=== PATIENT | female | born 1995 | race Caucasian/White ===

== ENCOUNTER → 2020-03-30 16:58 | Outpatient (ROUT) | payer OTHER, SELFPAY | PROVIDERS: Visit Provider Family Medicine | DX: Z34.90 Encounter for supervision of normal pregnancy, unspecified, unspecified trimester (principal) | CPT/HCPCS: 87081; 87147 ==

== ENCOUNTER → 2020-05-03 11:12 | Outpatient (CLI) | payer OTHER, SELFPAY ==
[2020-05-04 02:49] LABS: COVID19 Sendout Not Detected (Not Detect)
== END ==
PROVIDERS: Visit Provider Physician Assistant
DX: Z01.812 Encounter for preprocedural laboratory examination (principal)
CPT/HCPCS: 87635

== ENCOUNTER 2020-05-05 20:06 | Inpatient (IN) | payer OTHER, SELFPAY ==
[2020-05-05 21:33] LABS: Add Manual Diff / Slide Review NO; Basophils Absolute Auto 100 /uL (0-100); Basophils Percent Auto 0.5 % (0-2); Eosinophils Absolute Auto 100 /uL (0-450); Eosinophils Percent Auto 0.6 % (2-4); Hematocrit 34.8 % (36-46); Hemoglobin 12.1 g/dL (12.0-16.0); Lymphocytes Absolute Auto 2100 /uL (1100-4500); Lymphocytes Percent Auto 19.1 % (25-40); Mean Corpuscular HGB Conc 34.9 % (30-36); Mean Corpuscular Volume 91.9 fL (80-100); Monocytes Absolute Auto 900 /uL (0-900); Monocytes Percent Auto 8.5 % (3-14); Neutrophils Absolute Auto 7900 /uL (1500-7000); Neutrophils Percent Auto 71.3 % (50-75); Platelet Count 258 X10^3/uL (150-400); Red Blood Cell Count 3.79 X10^6/uL (4.0-5.2); Red Cell Distribution Width 14.6 % (11.6-14.8)
[2020-05-05] MEDS: miSOPROStoL 25 MCG TABLET VAG (21:42)
[2020-05-05 21:52] VITALS: BP 133/75
[2020-05-05] MEDS: ZOLPIDEM 5 MG TABLET PO (23:41)
[2020-05-06 07:15] VITALS: BP 133/77; PULSE 92; RESP 18; TEMP 36.7
[2020-05-06] MEDS: PENICILLIN G POTASSIUM 5,000,000 UNIT in DEXTROSE 5% IN WATER 250 ML IV (08:31)
[2020-05-06] MEDS: OXYTOCIN PREMIX 30 UNIT/500 ML PLAST..BAG IV (08:36)
--- NOTE | 2020-05-06 09:00 | PM.OBHP.1 ---
OB HPI Date/Time Date of admission: 05/06/20 Date Patient Seen: 05/06/20 Time Patient Seen: 09:00 History of Present Condition Chief complaint: : 1 Para: 0 Estimated Date of Delivery: 04/25/20 Estimated Gestational Age (weeks): Thirty Narrative: Veronica Khoury is a 24 year old female with no medical problems. Who had an uncomplicated . [place] during the 2nd trimester. Should good dates period and previous good care. No issues or complications. Indications Indication for induction OB: post dates History of Present care: good care Dating criteria: LMP confirmed by 1st trimester US Ultrasounds: normal mid trimester US Obstetrical complications: none Medical complications: none Preadmission Labs Blood type: 0 (-) negative -: Antibody screen: negative, Cystic fibrosis screen: unknown, GBS status: positive, HBsAG: negative, HIV: negative, HSV 1: negative, HSV 2: negative and RPR/VDLR: negative -: Chlamydia screen: not detected and Gonorrhea screen: not detected -: Rubella: immune and Varicella: immune HCT: 32.8 HCAB: negative PAP: Normal Cell-free DNA: Negative 1 hr GTT: 113 Prior (ies) History: No issues or problems Evaluation Evaluation Laboratory results: Laboratory Tests 05/05/20 05/05/20 21:00 21:00 WBC 11.0 RBC 3.79 L Hgb 12.1 Hct 34.8 L MCV 91.9 MCH 32.0 MCHC 34.9 RDW 14.6 Plt Count 258 Neut % (Auto) 71.3 Lymph % (Auto) 19.1 L [place] % (Auto) 8.5 Eos % (Auto) 0.6 L Baso % (Auto) 0.5 Neut # (Auto) 7900 H Lymph # (Auto) 2100 [place] # (Auto) 900 Eos # (Auto) 100 Baso # (Auto) 100 Blood Type O Negative Antibody Screen Negative PFSH Social History Smoking Status: Never smoker Meds Home Medications and Allergies Home Medications Medication Instructions Recorded Confirmed Type No Known Home Medications 05/05/20 05/05/20 History Allergies Allergy/AdvReac Type Severity Reaction Status Date / Time No Known Drug Allergies Allergy Verified 05/05/20 21:55 Review of Systems Review of Systems ROS: Yes All systems reviewed with the patient and are negative except as otherwise documented Exam Narrative Exam Narrative: Alert smiling female in no acute distress. Lungs are clear. Heart regular rate and rhythm. Abdomen is soft positive bowel sounds nontender gravid. Vertex. Sterile vaginal exam 2-3 cm 0 to +1 80% vertex AROM with clear fluid extremities normal. Neurologic exam normal reflexes Objective Labs Result Diagrams: 05/05/20 21:00 Labs: Laboratory Results - last 24 hr 05/05/20 05/05/20 21:00 21:00 WBC 11.0 RBC 3.79 L Hgb 12.1 Hct 34.8 L MCV 91.9 MCH 32.0 MCHC 34.9 RDW 14.6 Plt Count 258 Neut % (Auto) 71.3 Lymph % (Auto) 19.1 L [place] % (Auto) 8.5 Eos % (Auto) 0.6 L Baso % (Auto) 0.5 Neut # (Auto) 7900 H Lymph # (Auto) 2100 [place] # (Auto) 900 Eos # (Auto) 100 Baso # (Auto) 100 Blood Type O Negative Antibody Screen Negative Assessment and Plan Assessment and Plan Assessment and Plan narrative: 24-year-old here for postdate induction. Cytotec last night. Antibiotics started today. For GBS positive. Will need RhoGAM. May rum this morning and Pitocin started this morning. Will proceed to delivery. heart monitor was category 1
[2020-05-06] MEDS: LACTATED RINGERS 1,000 ML 100 ML IV (12:53)
[2020-05-06] MEDS: miSOPROStoL 200 MCG TABLET 600 MCG PR (13:35)
--- NOTE | 2020-05-06 13:51 | P.PCNOB_ITS ---
Labor & Delivery Delivery date: 05/06/20 Intrapartal events: None Cervical ripening method: per misoprostal protocol Induction method: AROM Delivery augmentation: pitocin Delivery monitor: external FHT Route of delivery: L&D Laceration Description: Periurethral - 1st Degree, Periurethral - 2nd Degree and Vaginal - 2nd Degree Delivery repair: vicryl Estimated blood loss (mL): 350 Anesthesia type: None Complications: None Narrative: Patient was admitted last night for Cytotec and cervical ripening. She has 41 and 3 7th last night 41 and 4 7th today. Cytotec x3 was given. Patient had moderate cervical change. This morning she was 2-3 cm 80% 0+ 1 and a room was undertaken approximately 845. Clear fluid. Pitocin was already began but minimal affect and rupture seem to be much more effective. Within half an hour she was janna pretty aggressively heart monitor last night had some mild very abilities which were considered to be just variables. heart monitor otherwise was very reactive. Through the course of for second- stage was otherwise category 1 period with no significant concerning abnormality. She progressed actually quite rapidly and was complete by approximately 12 which was 3-1/2 hours after rupture. We began second-stage at that time. And Afrin hour of active pushing baby was delivered with no shoulder or other abnormality. Child was bulb suctioned on the perineum and then risk to the baby was delivered up onto the mom's abdomen and chest. No resuscitation was required. Child was aggressively crying at that point. Delayed cord clamping was done per family's wish. Cord was then clamped and cut by dad. Cord bloods were obtained. Placenta delivered spontaneously shortly after that. Three vessels intact. Cervix was well into the pelvis on and moderate bleeding. Aggressive was sought edge was done. With good results. Perineum and mucosa with and evaluated she had bilateral periurethral first- degree tears. On the right side just below the Errol through was a second-degree tear about 1 cm long period was actively bleeding. She had first-degree tears around the perineum and on the left side she had a second-degree vaginal wall tear on this area the hymenal ring. The site bleeding along the 1st or second- degree tear leading from that to the labial edge and 1% lidocaine was used to and this to size and the peer urethral tear was then repaired with running 3 0 Vicryl. The right lateral hymenal ring vaginal tear was then repaired with 2 interrupted 4-0 Vicryl sutures. Did run a small area just lateral on the left which was had some slight bleeding with 4-0 Vicryl. Bleeding was re-evaluated she had a small amount of persistent bleeding from her uterus and 600 mcg of misoprostol was given p.o.. Pitocin was also previously been run at 250 an hour. No other changes. Seemed to have excellent results. EBL was 350 cc. Mother and infant were in stable condition. Plan for aftercare: Mom will be transferred after recovery to usual care.
[2020-05-06] MEDS: IBUPROFEN 600 MG TABLET PO (15:15)
[2020-05-07 07:20] LABS: Hematocrit 30.4 % (36-46); Hemoglobin 10.4 g/dL (12.0-16.0)
[2020-05-07] MEDS: DOCUSATE 100 MG CAPSULE PO (08:56)
[2020-05-07] MEDS: PRENATAL VIT,CALC/IRON/FOLIC 1 TABLET 1 TAB PO (08:56)
--- NOTE | 2020-05-07 09:00 | PM.OBDS.1 ---
Discharge Providers Provider Date of admission: 05/05/20 20:06 Discharge Date: 05/07/20 Consults: 05/07/20 13:47 Consult to Quenching Car Operator Routine Comment: Discharge provider: Dunia Maldonado MD Summary Hospital Course Date Patient Seen: 05/07/20 Time Patient Seen: 09:00 Procedures: Normal spontaneous vaginal delivery without epidural or analgesics medicine. Hospital Course: Admitted to the hospital for cervical ripening and Pitocin induction. Had normal spontaneous vaginal delivery without complications. GBS positive and received 1 dose of IV antibiotics. O negative and baby cord blood was A positive. RhoGAM given prior to discharge. No complications. [place] discharged home in stable condition on day 1. Peripartum Data Delivery Method: Natural Vaginal Laceration description: Periurethral - 1st Degree complications: none Status at Discharge Cognitive/behavioral status at discharge: oriented Functional status at discharge: independent ambulation Overall status at discharge: patient is progressing back to baseline Time Spent with Patient Time attestation: Total time spent providing and/or coordinating discharge services:30 min Objective Labs Result Diagrams: 05/07/20 06:36 Labs: Laboratory Results - last 24 hr 05/06/20 05/07/20 18:10 06:36 Hgb 10.4 L Hct 30.4 L Maternal Bleed Negative Exam Narrative Exam Narrative: Afebrile vital signs are stable Chest: Clear to auscultation Cor: Regular rate and rhythm without murmur Abdomen: Uterus is firm and nontender and well below the umbilicus Extremities trace edema Discharge Plan Discharge Plan Patient Disposition: Home Discharge orders & Medications Prescriptions: No Action No Known Home Medications RF: 0
[2020-05-07] MEDS: RHO(D) IMMUNE GLOBULIN 1,500 UNIT SYRINGE 1500 UNIT IM (10:50)
== END 2020-05-07 13:03 | disposition home or self-care (01) | DRG 807 ==
PROVIDERS: Admitting Provider Family Medicine; Referring Provider Family Medicine; Visit Provider Family Medicine
DX: O48.0 Post-term pregnancy (principal); Z37.0 Single live birth; Z3A.41 41 weeks gestation of pregnancy; O99.824 Streptococcus B carrier state complicating childbirth; O71.82 Other specified trauma to perineum and vulva; O70.1 Second degree perineal laceration during delivery
CPT/HCPCS: 36415; 59050; 85014; 85018; 85025; 85461; 86850; 86900; 86901; G0379; J2540; J2590; J2790; S0191

== ENCOUNTER → 2021-11-01 09:06 | Outpatient (CLI) | payer OTHER, MEDICAID, SELFPAY ==
--- NOTE | 2021-11-01 | DI.US.S_ITS ---
PROCEDURE: US OB <= 14 WEEKS FETUS INDICATIONS: state, incidental OUTSIDE/PRIOR DATING DATA: Last menstrual period (LMP): 08/02/2021. LMP-based estimated date of delivery (SHAN): 05/09/2022. First dating scan (date and location): 11/01/2021. Estimated date of delivery (SHAN) from first dating scan: 05/08/2022. The calculations are made using the ultrasound generated SHAN of 05/08/2022. TECHNIQUE: Real-time scanning was performed of the fetus and maternal pelvic organs, with image documentation. Endovaginal scanning was also performed to better visualize the fetus and maternal ovaries. COMPARISON: None. FINDINGS: Embryo: [place]-rump length is 6.8 cm corresponding to gestational age of 13 weeks 1 day. Heart rate: 163 beats per minute Maternal organs: Right ovary not well seen. Left ovary normal with a corpus luteum cyst noted. IMPRESSION: Single live intrauterine gestation with estimated ultrasound age of 13 weeks 1 day and SHAN 05/08/2022. Dictated by: Papa Ramos M.D. on 11/01/2021 at 10:02 Approved by: Papa Ramos M.D. on 11/01/2021 at 10:08
== END ==
PROVIDERS: PCP Family Medicine; Referring Provider Obstetrics & Gynecology; Visit Provider Obstetrics & Gynecology
DX: Z36.87 Encounter for antenatal screening for uncertain dates (principal); O34.81 Maternal care for other abnormalities of pelvic organs, first trimester; N83.12 Corpus luteum cyst of left ovary; Z3A.13 13 weeks gestation of pregnancy
CPT/HCPCS: 76801; 76817

== ENCOUNTER → 2021-11-10 12:29 | Outpatient (CLI) | payer OTHER, MEDICAID, SELFPAY ==
[2021-11-10 13:14] LABS: Add Manual Diff / Slide Review NO; Basophils Absolute Auto 0 /uL (0-100); Basophils Percent Auto 0.3 % (0-2); Eosinophils Absolute Auto 200 /uL (0-450); Eosinophils Percent Auto 1.7 % (2-4); Hematocrit 37.4 % (36-46); Hemoglobin 12.6 g/dL (12.0-16.0); Lymphocytes Absolute Auto 1600 /uL (1100-4500); Lymphocytes Percent Auto 14.2 % (25-40); Mean Corpuscular HGB Conc 33.8 % (30-36); Mean Corpuscular Hemoglobin 29.3 PG (26-34); Mean Corpuscular Volume 86.8 fL (80-100); Monocytes Absolute Auto 700 /uL (0-900); Neutrophils Absolute Auto 8600 /uL (1500-7000); Neutrophils Percent Auto 77.8 % (50-75); Platelet Count 250 X10^3/uL (150-400); Red Blood Cell Count 4.31 X10^6/uL (4.0-5.2); Red Cell Distribution Width 15.1 % (11.6-14.8)
[2021-11-10 13:50] LABS: Appearance Urine UA CLEAR; Bilirubin Urine UA NEGATIVE (NEGATIVE); Color Urine UA YELLOW; Glucose Urine UA NEGATIVE (Negative); Ketones Urine UA NEGATIVE (NEGATIVE); Leukocyte Esterase Urine UA NEGATIVE (NEGATIVE); Nitrite Urine UA NEGATIVE (Negative); Occult Blood Urine UA NEGATIVE (Negative); Protein Urine UA NEGATIVE (Negative); Specific Gravity Urine UA <=1.005 (1.000-1.035); Urobilinogen Urine UA 0.2 E.U./dL (0.2)
[2021-11-10 13:53] LABS: pH Urine UA 6.5 (4.5-8.0)
[2021-11-11 06:10] LABS: Varicella IgG Antibody 785 index (Immune >165)
[2021-11-11 08:17] LABS: RPR Screen Non Reactive (Non Reactive)
[2021-11-11 17:53] LABS: Hepatitis B Surface Antigen NEGATIVE s/c (NEGATIVE); Rubella Antibody IgG 11.4 IU/mL (>15)
[2021-11-11 18:09] LABS: HIV 1 & 2 Ab/Ag 4th Gen Combo NEGATIVE (NEGATIVE); Hep C Virus Ab w/Reflex Quant NEGATIVE s/c (NEGATIVE)
== END ==
PROVIDERS: PCP Family Medicine; Referring Provider Obstetrics & Gynecology; Visit Provider Obstetrics & Gynecology
DX: Z34.81 Encounter for supervision of other normal pregnancy, first trimester (principal)
CPT/HCPCS: 36415; 80055; 81003; 86787; 86803; 86850; 86900; 86901; 87086; 87389

== ENCOUNTER → 2021-11-18 15:43 | Outpatient (CLI) | payer OTHER, MEDICAID, SELFPAY ==
[2021-11-18 20:19] LABS: Urine N gonorrhoeae NOT DETECTED
[2021-11-18 20:45] LABS: Urine Chlamydia NOT DETECTED
== END ==
PROVIDERS: PCP Family Medicine; Visit Provider Obstetrics & Gynecology
DX: Z34.82 Encounter for supervision of other normal pregnancy, second trimester (principal); Z3A.15 15 weeks gestation of pregnancy
CPT/HCPCS: 87491; 87591

== ENCOUNTER → 2022-01-03 12:08 | Outpatient (CLI) | payer OTHER, MEDICAID, SELFPAY ==
--- NOTE | 2022-01-03 12:09 | DI.US.S_ITS ---
PROCEDURE: US OB >= 14 WEEKS FETUS INDICATIONS: ANATOMY OUTSIDE/PRIOR DATING DATA: Last menstrual period (LMP): 08/02/2021. LMP-based estimated date of delivery (SHAN): 05/09/2022. First dating scan (date and location): 11/01/2021. Estimated date of delivery (SHAN) from first dating scan: 05/08/2022. TECHNIQUE: Real-time scanning was performed of the fetus, with image documentation and biometric measurements. Endovaginal scanning: None COMPARISON: [facility], , OB >= 14 WEEKS FETUS, 12/16/2021, 13:59. FINDINGS: General: A single living intrauterine gestation is present. Presentation: Vertex. Placenta: Placental position is posterior , without previa. Amniotic fluid index: 16.1 cm, normal range is 5-24 cm. heart rate: 157 beats per minute. Maternal cervical canal: 3.2 cm long. Normal lower limit is 2.5 cm. biometrics: Biparietal diameter: 5.4 cm, 22 week 2 day Head circumference: 20.5 cm, 22 week 4 day Abdominal circumference: 17.5 cm, 22 week 3 day Femur length: 4.1 cm, 23 week 3 day Clinically estimated gestational age: 22 week 1 day Composite gestational age from present scan: 22 week 5 day Estimated weight and percentile: 538 g, 78th percentile Anatomic survey: Neuro: Ventricles are non-dilated at less than 10 mm. Cisterna magna is normal at 3-11 mm. Cerebellum is normal in size and morphology. Nuchal skin fold: Normal at less than 6 mm between 14-21 weeks gestational age. Face: Nose and lips, facial profile are normal. Spine: No evidence for spina bifida. Heart: 4-chambered heart is present, with normal ventricular outflow tracts. Diaphragm: Diaphragm is intact. Stomach: Left-sided stomach is present. Kidneys: No hydronephrosis. Normal is less than 5 mm in 2nd trimester, less than 7 mm in 3rd trimester. Cord: 3-vessel cord has orthotopic insertion. Bladder: Normal in size. Extremities: All 4 extremities identified. IMPRESSION: Single live intrauterine corresponds with a 22 week 5 day gestation by current ultrasound Approved by: Ike Bennett M.D. on 01/03/2022 at 13:43
== END ==
PROVIDERS: PCP Family Medicine; Referring Provider Obstetrics & Gynecology; Visit Provider Obstetrics & Gynecology
DX: Z34.82 Encounter for supervision of other normal pregnancy, second trimester (principal); Z3A.22 22 weeks gestation of pregnancy
CPT/HCPCS: 76811

== ENCOUNTER → 2022-02-02 14:18 | Outpatient (CLI) | payer OTHER, MEDICAID, SELFPAY ==
[2022-02-02 15:46] LABS: Hematocrit 32.5 % (36-46); Hemoglobin 11.1 g/dL (12.0-16.0)
[2022-02-02 16:22] LABS: GTT (PREG) 1 Hour PP 50gm Dose 119 mg/dL (76-139)
== END ==
PROVIDERS: PCP Family Medicine; Referring Provider Obstetrics & Gynecology; Visit Provider Obstetrics & Gynecology
DX: O26.899 Other specified pregnancy related conditions, unspecified trimester; Z3A.26 26 weeks gestation of pregnancy; Z67.91 Unspecified blood type, Rh negative
CPT/HCPCS: 36415; 82950; 85014; 85018; 86850

== ENCOUNTER → 2022-04-20 09:10 | Outpatient (CLI) | payer OTHER, MEDICAID, SELFPAY ==
[2022-04-21 07:28] LABS: Strep Grp B PCR POS for Grp B Strep
== END ==
PROVIDERS: PCP Family Medicine; Visit Provider Obstetrics & Gynecology
DX: Z34.83 Encounter for supervision of other normal pregnancy, third trimester (principal); Z3A.37 37 weeks gestation of pregnancy
CPT/HCPCS: 87653

== ENCOUNTER 2022-04-26 17:04 | Outpatient (CLI) | payer OTHER, MEDICAID, SELFPAY ==
--- NOTE | 2022-04-26 18:01 | PM.OBTRLD ---
Visit Information Visit Information Date of evaluation: 04/26/22 Primary OB Provider: Kinza Camacho Reason for Evaluation: Yes rupture of membranes [facility] Medical History (Updated 03/09/22 @ 15:14 by David Tian MD) Chicken pox (~1999) Surgical History (Updated 11/17/21 @ 14:21 by Jocelyn Woods RN) [place] teeth extracted (~2012) Family History (Updated 11/23/21 @ 22:55 by Yoanna Cochran) Mother Hypertension Father Hypertension Grandmother No problems noted. Grandfather Skin cancer Grandmother Cancer Grandfather Family history unknown Brother Hypertension Social History marital status: number of children: 1 household members: spouse and children lives independently: Yes caregiver/support person: No housing: house pets and animals: No education level: college (2 yrs. ) occupational status: unemployed ([facility] [employer]) current occupational exposures/hazards: No special chris needs: No seatbelt use: always do you feel safe at home: Yes Smoking Status: Never smoker second hand exposure: No alcohol intake: never substance use type: does not use during the past year weight has: remained stable well-balanced diet: about half the time (low appetite, feeling full, not really hungry. ) daily servings fruits/ve-4 caffeine: Yes (1 cup 1-2 x week. ) Type(s) of exercise: normal ROM and activity (busy mom to toddler.) frequency: does not exercise Evaluation Evaluation Baseline heart rate: 135 Variability: Moderate (11-25) monitor accelerations: Present Monitor Decelerations: Absent Contraction Frequency (minutes): 10 Uterine Contraction Intensity: Mild Non-invasive Membranes Rupture Test: negative Diagnosis, Plan/Disposition Plan/Disposition Plan: Assessment: 38 1/7 weeks gestation No ROM Plan: D/C to home S/S labor reviewed OB Disposition: home
== END 2022-04-26 18:30 | disposition home or self-care (01) ==
LOC: OB 04-27 10:34
PROVIDERS: PCP Family Medicine; Referring Provider Obstetrics & Gynecology; Visit Provider Obstetrics & Gynecology
DX: Z03.71 Encounter for suspected problem with amniotic cavity and membrane ruled out (principal); Z3A.38 38 weeks gestation of pregnancy
CPT/HCPCS: 59025; 84112; G0378; G0379

== ENCOUNTER 2022-05-09 07:01 | Inpatient (IN) | payer OTHER, MEDICAID, SELFPAY ==
[2022-05-09 08:01] VITALS: BP 132/81
[2022-05-09 08:06] LABS: Add Manual Diff / Slide Review NO; Basophils Absolute Auto 0 /uL (0-100); Basophils Percent Auto 0.5 % (0-2); Eosinophils Absolute Auto 200 /uL (0-450); Eosinophils Percent Auto 2.2 % (2-4); Hematocrit 34.7 % (36-46); Lymphocytes Absolute Auto 1500 /uL (1100-4500); Lymphocytes Percent Auto 17.8 % (25-40); Mean Corpuscular HGB Conc 34.5 % (30-36); Mean Corpuscular Hemoglobin 31.4 PG (26-34); Mean Corpuscular Volume 90.9 fL (80-100); Monocytes Absolute Auto 600 /uL (0-900); Neutrophils Absolute Auto 5900 /uL (1500-7000); Neutrophils Percent Auto 72.5 % (50-75); Platelet Count 231 X10^3/uL (150-400); Red Blood Cell Count 3.82 X10^6/uL (4.0-5.2); Red Cell Distribution Width 14.1 % (11.6-14.8); White Blood Cell Count 8.2 X10^3/uL (4.5-11.0)
[2022-05-09] MEDS: OXYTOCIN PREMIX 30 UNIT/500 ML PLAST..BAG IV (08:13)
[2022-05-09] MEDS: PENICILLIN G POTASSIUM 5,000,000 UNIT in DEXTROSE 5% IN WATER 250 ML 250 UNIT IV (08:13)
[2022-05-09] MEDS: LACTATED RINGERS 1,000 ML 100 ML IV (08:14)
[2022-05-09 08:27] LABS: COVID19 -Nasal RAPID Negative (Negative)
[2022-05-09] MEDS: PENICILLIN G POTASSIUM 3,000,000 UNIT/50 ML FROZ.PIGGY 100 UNIT IV (13:13)
--- NOTE | 2022-05-09 20:48 | P.HPOB_ITS ---
OB HPI Date/Time Date of admission: 05/09/22 Date Patient Seen: 05/09/22 Time Patient Seen: 07:30 History of Present Condition Chief complaint: maternity SHAN Calculator Estimated Delivery Date Method Current WG Current Estimate 05/09/22 LMP (Uncertain) 40w 0d Other Estimates 05/08/22 Ultrasound #1 40w 1d Estimated Gestational Age (weeks): 40 : 2 Para: 1 care: good care, initiated at week # (11), number of visits (10) and pounds weight gain (26) Dating criteria OB: LMP confirmed by 1st trimester US Ultrasounds: normal 1st trimester US and normal mid trimester US Obstetrical complications: none Medical complications OB: none Preadmission Labs Last OB Lab Results: Blood Type O Negative 05/09/22 07:20 Antibody Screen Positive 05/09/22 07:20 Hematocrit 34.7 % (36-46) L 05/09/22 07:20 Hemoglobin 12.0 g/dL (12.0-16.0) 05/09/22 07:20 Hepatitis B Surface Antigen Negative s/c (NEGATIVE) 11/10/21 12 :33 Hepatitis C Antibody Negative s/c (NEGATIVE) 11/10/21 12:33 Rubella Antibody 11.4 IU/mL (>15) L 11/10/21 12:33 Varicella-Zoster IgG Antibody 785 index (Immune >165) 11/10/21 12:33 Glucose 1 Hour 119 mg/dL (76-139) 02/02/22 15:30 Group B Streptococcus (PCR) Pos for grp b strep H 04/20/22 09:1 0 -: Chlamydia screen: negative, Gonorrhea screen: negative and Urine: negative -: PAP smear: Normal External Labs -: Urine: negative Prior (ies) Past Pregnancies Del. Date GA/Weeks Labor Lgth Wt Sex Route Outcome Anesthesia Place Delv Breastfeed Preg Comp Name 05/06/20 42 4 8 lb 4 oz Female vaginal live - full term no ne IH 3 mos.; biting/suck issues. post-dates induction [place] Delivery Date: 05/06/20 Last Updated by: Kiah Tapia/ Dr. Bailey. Cytotec to Pitocin, 1 hr 2nd stage, no complications. Small tear c repair. Evaluation Evaluation Baseline heart rate: 135 Variability: Moderate (11-25) monitor accelerations: Present Monitor Decelerations: Absent Status: Category l Dilation (cm): 3 Effacement (%): 75 station: -1 Position of cervix: mid Consistency: medium [facility] Medical History (Updated 03/09/22 @ 15:14 by David Tian MD) Chicken pox (~1999) Surgical History (Updated 11/17/21 @ 14:21 by Jocelyn Woods RN) [place] teeth extracted (~2012) Family History (Updated 11/23/21 @ 22:55 by Yoanna Cochran) Mother Hypertension Father Hypertension Grandmother No problems noted. Grandfather Skin cancer Grandmother Cancer Grandfather Family history unknown Brother Hypertension Social History marital status: number of children: 1 household members: spouse and children lives independently: Yes caregiver/support person: No housing: house pets and animals: No education level: college (2 yrs. ) occupational status: unemployed ([employer]) current occupational exposures/hazards: No special chris needs: No seatbelt use: always do you feel safe at home: Yes Smoking Status: Never smoker second hand exposure: No alcohol intake: never substance use type: does not use during the past year weight has: remained stable well-balanced diet: about half the time (low appetite, feeling full, not really hungry. ) daily servings fruits/ve-4 caffeine: Yes (1 cup 1-2 x week. ) Type(s) of exercise: normal ROM and activity (busy mom to toddler.) frequency: does not exercise Meds Home Medications and Allergies Home Medications Medication Instructions Recorded Confirmed Type prenat.vits,caesar,uts-jumf-egmop 1 tab PO DAILY 11/17/21 05/09/22 History Allergies Allergy/AdvReac Type Severity Reaction Status Date / Time No Known Drug Allergies Allergy Verified 05/04/22 16:14 OB Exam Narrative Exam Narrative: Generally: Patient is sitting up in bed, no acute distress Lungs: Clear to auscultation bilaterally Cardiovascular: Regular rate and rhythm Fundal height: 39 cm Estimated weight: 8 lb Extremities: No edema Objective Labs Result Diagrams: 05/09/22 07:20 Labs: Laboratory Results - last 24 hr 05/09/22 05/09/2205/09/22 07:20 07:20 07:20 WBC 8.2 RBC 3.82 L Hgb 12.0 Hct 34.7 L MCV 90.9 MCH 31.4 MCHC 34.5 RDW 14.1 Plt Count 231 Neut % (Auto) 72.5 Lymph % (Auto) 17.8 L [place] % (Auto) 7.0 Eos % (Auto) 2.2 Baso % (Auto) 0.5 Neut # (Auto) 5900 Lymph # (Auto) 1500 [place] # (Auto) 600 Eos # (Auto) 200 Baso # (Auto) 0 SARS-CoV-2 (PCR) Negative Blood Type O Negative Antibody Screen Positive Antibody Identification Anti-D Assessment and Plan Assessment and Plan Assessment and Plan narrative: Assessment: 26-year-old 2 para 1 at 40 weeks gestation for induction of labor GBS positive Plan: Pitocin per protocol 2 After second dose of antibiotics plan AROM Expected management to spontaneous vaginal delivery Time Spent with Patient Total time spent with greater than 50% in coordination of care (as documented) at patient's floor/unit and/or counseling patient:: 15-24 minutes
--- NOTE | 2022-05-09 20:53 | PM.OBPNLAB ---
Date/Time Date Patient Seen: 05/09/22 Time Patient Seen: 13:30 Pain Control Pain control: tolerating well Pelvic Exam Dilation (cm): 3 Effacement (%): 75 station: -1 Amniotic membrane status: Intact Contractions Contractions on admission: none Pitocin rate (mU/min): 6 Contraction frequency (min): 3 Contraction duration (min): 1 Contraction intensity: Mild Status status: Category l Heart Rate Baseline: 135 Monitor Accelerations: Present Monitor Decelerations: Absent Monitor Variability: Moderate Assessment and Plan Assessment: induction ongoing Plan: other Comments: AROM with copious clear amniotic fluid
--- NOTE | 2022-05-09 20:54 | PM.OBPNLAB ---
Date/Time Date Patient Seen: 05/09/22 Time Patient Seen: 17:30 Pain Control Pain control: tolerating well Pelvic Exam Dilation (cm): 5 Effacement (%): 100 station: 0 Amniotic membrane status: Ruptured Contractions Contractions on admission: none Pitocin rate (mU/min): 10 Contraction frequency (min): 3 Contraction duration (min): 1 Contraction pattern: Regular Contraction intensity: Moderate Status status: Category l Heart Rate Baseline: 135 Monitor Accelerations: Present Monitor Decelerations: Absent Monitor Variability: Moderate Assessment and Plan Assessment: active labor Plan: continuous present management Comments: Expectant management to
--- NOTE | 2022-05-09 20:56 | PM.OBPRVD ---
Events: Labor Induction Labor & Delivery Delivery date: 05/09/22 Intrapartal Events: Precipitous Labor < 3 hours Cervical ripening method: none Induction method: per pitocin protocol Delivery augmentation: rupture of membranes Delivery monitor: external FHT and external uterine Route of delivery: Episiotomy description: None L&D Laceration Description: None Estimated blood loss (mL): 100 Anesthesia Type: None Complications: None Narrative: Patient complete and pushed once. At 5:45 p.m., a live male delivered spontaneously in the LEAH presentation with compound presentation with the left arm. No nuchal cord. The remainder of the body delivered without difficulty and was placed on mom's abdomen. The cord was double clamped and cut after it stopped pulsing. Pitocin was given in the IV fluids. Cord bloods were obtained. Placenta delivered intact with a three-vessel cord at 5:50 p.m.. Fundus was massaged to firm. No lacerations. Apgars 9 at 1 minute and 9 at 5 minutes. Weight 8 lb 8.3 oz. . Mom and stable to recovery. Baby 1: gender: Male Presentation: vertex Position: Right Occiput Anterior Placenta delivery description: Spontaneous Cord Vessel Description: 3 Vessels score (1 min): 9 score (5 min): 9 weight: 8 lb 8.3 oz Plan for aftercare: Routine care
[2022-05-10] MEDS: ACETAMINOPHEN 325 MG TABLET 650 MG PO ×2 (00:52→08:40)
[2022-05-10] MEDS: IBUPROFEN 600 MG TABLET PO ×2 (00:52→08:40)
[2022-05-10 05:52] LABS: Hematocrit 33.4 % (36-46); Hemoglobin 11.4 g/dL (12.0-16.0)
--- NOTE | 2022-05-10 08:00 | PM.OBDS.1 ---
Discharge Providers Provider Date of admission: 05/09/22 07:01 Discharge Date: 05/10/22 Primary care physician: Andrea Bailey MD Consults: 05/10/22 17:54 Consult to Supervisor [employer] Service Routine Comment: Discharge provider: Kinza Camacho MD Summary Hospital Course Date Patient Seen: 05/10/22 Time Patient Seen: 08:00 Diagnoses: Forty weeks gestation Induction of labor with Pitocin Artificial rupture of membranes Spontaneous vaginal delivery Hospital Course: Patient is a 26-year-old 2 para 2 who presented on May 09, 2022 for a scheduled induction of labor. She received Pitocin per protocol 2. Artificial rupture of membranes was performed with clear amniotic fluid. She was 3 cm dilated. She progressed to 5 cm at 5:30 p.m.. She had a precipitous delivery 10 minutes later. She delivered a live male infant without complication. No lacerations. Her course was unremarkable. She is discharged home on day # 1. Peripartum Data Delivery Method: Natural Vaginal Laceration Description: None Procedures: Pitocin induction of labor Artificial rupture of membranes Spontaneous vaginal delivery complications: none 1: Gender: Male Disposition of : home Status at Discharge Cognitive/behavioral status at discharge: oriented Functional status at discharge: independent ambulation Overall status at discharge: patient is progressing back to baseline Time Spent with Patient Time attestation: Total time spent providing and/or coordinating discharge services: Time spent: Less than 30 minutes Objective Labs Result Diagrams: 05/10/22 05:38 Labs: Laboratory Results - last 24 hr 05/09/22 05/09/22 05/09/22 07:20 07:20 07:20 WBC 8.2 RBC 3.82 L Hgb 12.0 Hct 34.7 L MCV 90.9 MCH 31.4 MCHC 34.5 RDW 14.1 Plt Count 231 Neut % (Auto) 72.5 Lymph % (Auto) 17.8 L [place] % (Auto) 7.0 Eos % (Auto) 2.2 Baso % (Auto) 0.5 Neut # (Auto) 5900 Lymph # (Auto) 1500 [place] # (Auto) 600 Eos # (Auto) 200 Baso # (Auto) 0 SARS-CoV-2 (PCR) Negative Blood Type O Negative Antibody Screen Positive Antibody Identification Anti-D 05/10/22 05:38 WBC RBC Hgb 11.4 L Hct 33.4 L MCV MCH MCHC RDW Plt Count Neut % (Auto) Lymph % (Auto) [place] % (Auto) Eos % (Auto) Baso % (Auto) Neut # (Auto) Lymph # (Auto) [place] # (Auto) Eos # (Auto) Baso # (Auto) SARS-CoV-2 (PCR) Blood Type Antibody Screen Antibody Identification Exam Narrative Exam Narrative: Generally: Patient is sitting up in bed, holding , no acute distress Fundus: Firm at U Extremities: No edema, negative Homans Discharge Plan Discharge Plan Patient Disposition: Home Provider Discharge Comment: Call with fever, chills, or bleeding vaginally more than a pad in an hour Ibuprofen 600 mg every 6 hours as needed Tylenol 650 mg every 6 hours as needed Discharge orders & Medications Prescriptions: Continued prenat.vits,caesar,obg-mwuj-gajxm Tablet 1 tab PO DAILY Follow up/Referrals: Kinza Camacho MD [Physician] - 6 Weeks Diet/Activity/Treatments Diet: Regular Activity: Nothing in the vagina for 6 weeks Skin/Wound/Dressing Care Report to your healthcare provider any signs of infection, such as:: chills, fever, increased pain and unusual drainage Visit Report/Discharge Packet Instructions: DI for Labor and Delivery, Vaginal Discharge Data Primary Care Provider: Andrea Bailey
[2022-05-10] MEDS: DOCUSATE 100 MG CAPSULE PO (08:40)
[2022-05-10] MEDS: PRENATAL VIT,CALC/IRON/FOLIC 1 TABLET 1 TAB PO (08:40)
[2022-05-10 09:13] VITALS: BP 139/90; PULSE 75; RESP 16; TEMP 36.9
[2022-05-10] MEDS: RHO(D) IMMUNE GLOBULIN 1,500 UNIT SYRINGE 1500 UNIT IM (13:19)
== END 2022-05-10 14:32 | disposition home or self-care (01) | DRG 560 ==
PROVIDERS: Admitting Provider Obstetrics & Gynecology; PCP Family Medicine; Referring Provider Obstetrics & Gynecology; Visit Provider Obstetrics & Gynecology
DX: O99.824 Streptococcus B carrier state complicating childbirth (principal); Z3A.40 40 weeks gestation of pregnancy; Z37.0 Single live birth; O62.3 Precipitate labor; Z67.41 Type O blood, Rh negative; O36.0130 Maternal care for anti-D [Rh] antibodies, third trimester, not applicable or unspecified; Z20.822 Contact with and (suspected) exposure to COVID-19
CPT/HCPCS: 36415; 59050; 59409; 85014; 85018; 85025; 86850; 86870; 86900; 86901; 87635; C9803; G0379; J2540; J2590; J2790